=== PATIENT | male | born 1960 | race Caucasian/White ===

== ENCOUNTER 2021-04-27 22:47 | Inpatient (IN) ==
[2021-04-27 23:16] LABS: Basophils # 0.1 10*3/uL (0.0-0.2); Basophils % 0.7 % (0.0-0.8); Eosinophils # 0.2 10*3/uL (0.0-0.87); Eosinophils % 2.9 % (0.00-10.9); Hematocrit 42.2 VOL% (42.0-52.0); Hemoglobin 13.4 GM/DL (14.0-18.0); Immature Granulocytes % 0.5 %; Immature Granulocytes Absolute 0.04 #; Lymphocytes # 2.1 10*3/uL (1.4-4.0); Lymphocytes % 27.2 % (21.2-54.2); Mean Corpuscular HGB Conc 31.8 GM/DL (32-36); Mean Corpuscular Volume 98.6 FL (87-102); Mean Platelet Volume 10.5 FL (9.6-12.0); Monocytes % 8.6 % (1.7-12.7); Neutrophils % 60.1 % (38.7-73.9); Platelet Count 179 T/CUMM (130-400); Red Blood Count 4.28 MC/CUMM (3.8-5.5); Red Cell Distribution Width 13.9 % (9.3-17.3); White Blood Count 7.6 T/CUMM (4-12)
[2021-04-27 23:34] LABS: Alanine Aminotransferase < 9 U/L (16-61); Albumin 3.7 G/DL (3.4-5.0); Alkaline Phosphatase 86 U/L (45-117); Aspartate Amino Transferase 32 U/L (0-37); Blood Urea Nitrogen 26 MG/DL (7-18); Calcium 8.7 MG/DL (8.5-10.1); Carbon Dioxide 27 MMOL/L (21-32); Estimated Glom Filtration Rate 101 ML/MIN; Glucose 95 MG/DL (74-106); Osmolality,Calculated 283.4 MOS/KG (273-304); Sodium 140 MMOL/L (136-145); Total Protein 6.8 G/DL (6.4-8.2)
[2021-04-27 23:38] LABS: PT Patient Result 10.9 SECS (10.5-12.0); Partial Thromboplastin Time 25.9 SECS (23.9-33.8)
[2021-04-28] MEDS ORDERED: ASPIRIN 300 MG SUPP RECTAL STA (00:09)
[2021-04-28] MEDS ORDERED: DEXTROSE 50% 25 GM/50 ML VIAL IV PRN (00:52)
[2021-04-28] MEDS ORDERED: ACETAMINOPHEN 325 MG TABLET PO PRN (00:52)
[2021-04-28] MEDS ORDERED: GLUCAGON 1 MG VIAL IM PRN (00:52)
[2021-04-28] MEDS ORDERED: CALCIUM (CARBONATE)/VITAMIN D 500 MG-200 UNIT TABLET PO SCH (02:30)
[2021-04-28] MEDS: SODIUM CHLORIDE 0.45% 1,000 ML IV SCH ×2 (02:32→09:50)
[2021-04-28] MEDS: CALCIUM (CARBONATE)/VITAMIN D 600 MG-400 UNIT TABLET PO SCH ×3 (03:00→21:14)
[2021-04-28] MEDS: DIVALPROEX 250 MG TABLET PO SCH ×3 (03:00→21:13)
[2021-04-28] MEDS: MEMANTINE 10 MG TABLET PO SCH ×3 (03:00→21:13)
[2021-04-28] MEDS: AMANTADINE 100 MG CAPSULE PO SCH ×3 (03:01→21:14)
[2021-04-28 03:03] LABS: Bilirubin,Urine Negative (Negative); Blood, Urine Moderate mg/dL (Negative); Glucose,Urine (UA) Negative (Negative); Hyaline Casts,Urine 164 /LPF (0-3); Ketones,Urine 5 mg/dL (Negative); Mucus,Urine Many /LPF (Occasional); Nitrite,Urine Negative (Negative); Protein,Urine 30 MG/DL; RBC,Urine 371 /HPF (0-4); Urine Appearance Slightly Hazy (Clear); Urine Color Amber (Yellow); Urine Specific Gravity 1.021 (1.001-1.035); Urine Urobilinogen < 2.0 EU/DL (0.2-1.0)
[2021-04-28 03:10] LABS: Barbiturates Screen,Urine Negative (Negative); Benzodiazepines Screen,Urine Negative (Negative); Cannabinoid Screen,Urine Negative (Negative); Opiate Screen,Urine Negative (Negative); Phencyclidine Screen,Urine Negative (Negative)
[2021-04-28 04:18] LABS: Basophils % 0.8 % (0.0-0.8); Eosinophils # 0.2 10*3/uL (0.0-0.87); Eosinophils % 4.2 % (0.00-10.9); Immature Granulocytes Absolute 0.05 #; Lymphocytes # 1.5 10*3/uL (1.4-4.0); Lymphocytes % 30.9 % (21.2-54.2); Mean Platelet Volume 11.1 FL (9.6-12.0); Monocytes % 9.8 % (1.7-12.7); Neutrophils % 53.3 % (38.7-73.9); Platelet Count 149 T/CUMM (130-400); Red Blood Count 3.57 MC/CUMM (3.8-5.5); Red Cell Distribution Width 13.9 % (9.3-17.3)
[2021-04-28 04:19] LABS: Hematocrit 36.4 VOL% (42.0-52.0); Hemoglobin 11.3 GM/DL (14.0-18.0)
[2021-04-28 04:27] LABS: Alanine Aminotransferase < 9 U/L (16-61); Albumin 2.8 G/DL (3.4-5.0); Alkaline Phosphatase 66 U/L (45-117); Aspartate Amino Transferase 25 U/L (0-37); Blood Urea Nitrogen 21 MG/DL (7-18); Calcium 7.1 MG/DL (8.5-10.1); Carbon Dioxide 26 MMOL/L (21-32); Estimated Glom Filtration Rate 112 ML/MIN; Glucose 82 MG/DL (74-106); Osmolality,Calculated 267.4 MOS/KG (273-304); Potassium 3.2 MMOL/L (3.5-5.1); Sodium 133 MMOL/L (136-145); Total Protein 5.5 G/DL (6.4-8.2)
[2021-04-28 04:37] LABS: Risk Ratio 3.37; VLDL CHOLESTEROL 12.2 MG/DL
[2021-04-28 04:40] LABS: Eosinophils 3 % (0-10); Hypochromasia 1+; Lymphocytes 28 % (20-55); Microcytosis 1+; Platelet Estimate Adequate; Segmented Neutrophils 64 % (50-85); Total Cells Counted 100
[2021-04-28] MEDS: ASPIRIN 325 MG TABLET PO SCH (09:30)
[2021-04-28] MEDS: DOCUSATE SODIUM 100 MG CAPSULE PO SCH (09:30)
[2021-04-28] MEDS: PIMAVANSERIN 34 MG PO SCH (09:31)
[2021-04-28] MEDS: POLYETHYLENE GLYCOL POWDER 17 GM PACK PO SCH (09:31)
[2021-04-28] MEDS: PANTOPRAZOLE 40 MG TABLET PO SCH (09:31)
[2021-04-28] MEDS: ATORVASTATIN 40 MG TABLET PO SCH (09:31)
[2021-04-28] MEDS: CARBIDOPA/LEVODOPA 25-100 MG TABLET PO SCH ×4 (09:32→21:14)
[2021-04-28] MEDS: ENOXAPARIN 40 MG/0.4 ML SYRINGE SUBCUT SCH (09:53)
[2021-04-28] MEDS ORDERED: OPICAPONE 50 MG PO SCH (21:00)
[2021-04-29] MEDS: SODIUM CHLORIDE 0.45% 1,000 ML IV SCH ×3 (01:21→08:15)
[2021-04-29 04:57] LABS: Basophils # 0.1 10*3/uL (0.0-0.2); Basophils % 0.8 % (0.0-0.8); Eosinophils # 0.2 10*3/uL (0.0-0.87); Eosinophils % 3.6 % (0.00-10.9); Hemoglobin 12.9 GM/DL (14.0-18.0); Immature Granulocytes % 0.5 %; Immature Granulocytes Absolute 0.03 #; Lymphocytes # 1.8 10*3/uL (1.4-4.0); Lymphocytes % 28.7 % (21.2-54.2); Mean Corpuscular HGB Conc 31.5 GM/DL (32-36); Mean Platelet Volume 11.2 FL (9.6-12.0); Monocytes % 13.2 % (1.7-12.7); Neutrophils % 53.2 % (38.7-73.9); Platelet Count 168 T/CUMM (130-400); Red Blood Count 4.14 MC/CUMM (3.8-5.5); Red Cell Distribution Width 13.6 % (9.3-17.3); White Blood Count 6.4 T/CUMM (4-12)
[2021-04-29 05:25] LABS: Alanine Aminotransferase < 9 U/L (16-61); Albumin 3.3 G/DL (3.4-5.0); Alkaline Phosphatase 82 U/L (45-117); Aspartate Amino Transferase 28 U/L (0-37); Blood Urea Nitrogen 20 MG/DL (7-18); Calcium 8.9 MG/DL (8.5-10.1); Carbon Dioxide 27 MMOL/L (21-32); Estimated Glom Filtration Rate 119 ML/MIN; Glucose 100 MG/DL (74-106); Osmolality,Calculated 279.5 MOS/KG (273-304); Potassium 3.6 MMOL/L (3.5-5.1); Sodium 139 MMOL/L (136-145); Total Protein 6.7 G/DL (6.4-8.2)
[2021-04-29] MEDS ORDERED: ERGOCALCIFEROL 50,000 UNIT CAPSULE PO SCH (09:00)
[2021-04-29] MEDS: POLYETHYLENE GLYCOL POWDER 17 GM PACK PO SCH (10:03)
[2021-04-29] MEDS: ATORVASTATIN 40 MG TABLET PO SCH (10:04)
[2021-04-29] MEDS: CARBIDOPA/LEVODOPA 25-100 MG TABLET PO SCH ×2 (10:04→13:32)
[2021-04-29] MEDS: DIVALPROEX 250 MG TABLET PO SCH (10:04)
[2021-04-29] MEDS: MEMANTINE 10 MG TABLET PO SCH (10:04)
[2021-04-29] MEDS: CALCIUM (CARBONATE)/VITAMIN D 600 MG-400 UNIT TABLET PO SCH (10:04)
[2021-04-29] MEDS: PANTOPRAZOLE 40 MG TABLET PO SCH (10:04)
[2021-04-29] MEDS: DOCUSATE SODIUM 100 MG CAPSULE PO SCH (10:05)
[2021-04-29] MEDS: AMANTADINE 100 MG CAPSULE PO SCH (10:07)
[2021-04-29] MEDS: ENOXAPARIN 40 MG/0.4 ML SYRINGE SUBCUT SCH (10:08)
[2021-04-29] MEDS: ASPIRIN 325 MG TABLET PO SCH (10:45)
[2021-04-29] MEDS: PIMAVANSERIN 34 MG PO SCH (10:45)
[2021-04-29 12:45] VITALS: BP 152/87
[2021-04-30] MEDS ORDERED: CLOPIDOGREL 75 MG TABLET PO SCH (09:00)
== END 2021-04-29 17:05 | DRG 47 ==
LOC: N.ED 22:47 → N.EDINP 04-28 00:52 → N.4E 04-28 11:18
PROVIDERS: ADMIT Internal Medicine; ATTEND Internal Medicine